=== PATIENT | male | born 1995 | race Caucasian/White ===

== ENCOUNTER 2021-05-14 10:45 | Emergency (ER) | payer MEDICAID ==
[~2021-05-14] VITALS: Ht 182.9 cm; Wt 87.5 kg
[2021-05-14] MEDS ORDERED: DIPHENHYDRAMINE INJ 50 MG/ML VIAL IM ONE (11:00)
[2021-05-14] MEDS ORDERED: LORazepam 2 MG/ML VIAL IM ONE (11:00)
[2021-05-14] MEDS ORDERED: HALOPERIDOL LACTATE 5 MG/ML VIAL IM ONE (11:00)
--- NOTE | 2021-05-14 11:00 | NUR ---
PT TO BED 5 FOR EVALUATION.
--- NOTE | 2021-05-14 11:05 | NUR ---
PT BIB ALS FOR MULTIPLE FACIAL AND MOUTH TEARS. PT HAS HISTORY OF SELF INJURY BEHAVIORS BUT RECENTLY BEGAN MUTILATING HIS FACE WITH HIS HANDS. PT CAME FROM [facility] FOR [facility]IORAL CHANGE AND PER THE FACILITY THEY BELIEVE HIS CONDITION IS DETERIORATING. PT IS NONVERBAL NORMALLY, AUTISTIC, AND ALSO HAS A MOOD DISORDER. PT IS VERY STRONG AND REQUIRES MAXIMUM ASSISTANCE TO MAINTAIN HIS SAFETY.
[2021-05-14 11:21] LABS: BASOPHILS % (AUTO) 0.3 % (0.0-2.0); EOSINOPHILS # (AUTO) 0.1 K/uL (0.0-0.4); EOSINOPHILS % (AUTO) 0.6 % (0.0-4.0); HEMATOCRIT 38.6 % (36-54); HEMOGLOBIN 13.1 g/dL (14.0-18.0); LYMPHOCYTES # (AUTO) 1.1 K/uL (1.0-5.5); LYMPHOCYTES % (AUTO) 11.1 % (20.5-51.5); MEAN CORPUSCULAR HEMOGLOBIN 29 pg (27-31); MEAN CORPUSCULAR HGB CONC 34 % (32-36); MEAN CORPUSCULAR VOLUME 85 fL (79.0-98.0); MONOCYTES # (AUTO) 1.2 K/uL (0.0-1.0); MONOCYTES % (AUTO) 11.8 % (1.7-9.3); NEUTROPHILS # (AUTO) 7.5 K/uL (1.8-7.7); NEUTROPHILS % (AUTO) 76.2 % (40.0-70.0); PLATELET COUNT (AUTO) 198 K/uL (130-430); RED BLOOD CELL COUNT(AUTO) 4.54 MIL/uL (4.2-6.2); RED CELL DISTRIBUTION WIDTH 13.4 % (9.0-15.0); WHITE BLOOD COUNT (AUTO) 9.8 K/uL (4.8-10.8)
[2021-05-14 11:31] LABS: ANION GAP 8 (5-15); CALCIUM 8.6 mg/dL (8.4-11.0); CHLORIDE 108 mmol/L (98-107); CREATININE 0.96 mg/dL (0.55-1.30); GLUCOSE 95 mg/dL (70-99); POTASSIUM 3.9 mmol/L (3.5-5.1); SODIUM SERUM 142 mmol/L (136-145); UREA NITROGEN, BLOOD 9 mg/dL (8-21)
[2021-05-14 11:32] LABS: GFR AFRICAN AMERICAN 122 mL/min (>90)
[2021-05-14 11:37] LABS: ALANINE AMINOTRANSFERASE 29 U/L (12-78); ALBUMIN 3.3 g/dL (3.4-4.8); ASPARTATE AMINOTRANSFERASE 27 U/L (10-37); TOTAL BILIRUBIN 0.5 mg/dL (0.0-1.0)
[2021-05-14 11:38] LABS: ACETAMINOPHEN < 1 ug/mL (1-30); ALCOHOL, BLOOD < 3 mg/dL (<10)
--- NOTE | 2021-05-14 12:35 | NUR ---
GRACIE Garcia at bedside examining patient.
[2021-05-14 12:51] LABS: CHOLESTEROL 124 mg/dL (<200); HDL CHOLESTEROL 57 mg/dL (>45); LDL CHOLESTEROL 59 mg/dL (<100); TRIGLYCERIDES 69 mg/dL (30-150)
[2021-05-14 13:00] VITALS: BP_SYST 129
--- NOTE | 2021-05-14 14:11 | NUR ---
Dr. Garcia is talking with pt's mother via telephone.
--- NOTE | 2021-05-14 14:20 | NUR ---
WOUND CARE TO FACE COMPLETED.
--- NOTE | 2021-05-14 14:45 | NUR ---
PT TO BE DISCHARGED. 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
[2021-05-14 15:22] VITALS: BP_SYST 129
--- NOTE | 2021-05-14 15:22 | NUR ---
Patient given written and verbal discharge instructions and verbalizes understanding. DR. TORY BOWMAN MD discussed with patient the results and treatment provided. Patient in stable condition. ID arm band removed. Patient educated on pain management and to follow up with PMD. Pain Scale 0/10. Opportunity for questions provided and answered.
== END 2021-05-14 15:22 | disposition home or self-care (01) ==
LOC: SED 10:45
DX: S01.511A Laceration without foreign body of lip, initial encounter (principal); F31.9 Bipolar disorder, unspecified; Y33.XXXA Other specified events, undetermined intent, initial encounter; Y93.89 Activity, other specified; Y92.89 Other specified places as the place of occurrence of the external cause; Y99.8 Other external cause status
CPT/HCPCS: 36415; 70140; 80053; 80061; 80178; 83036; 85025; 96372; 99291; G0480; J1200; J1630; J2060; G0481; G0482